=== PATIENT | female | born 1940 | race Caucasian/White ===

== ENCOUNTER 2024-03-29 06:30 | Day surgery (SDC) | payer MEDICARE, OTHER ==
--- NOTE | 2024-03-23 09:03 | HP ---
HISTORY OF PRESENT ILLNESS: The patient is an 83-year-old female who presents with a positive occult stool. She sees no blood in the stool. She has never had a colonoscopy to date. She has no other complaints. PAST MEDICAL HISTORY: Hypertension, hyperlipidemia, diabetes, atrial fibrillation, TIA, arthritis. MEDICATIONS: Atorvastatin, isosorbide mononitrate, Januvia, amiodarone, hydrochlorothiazide, lisinopril, metformin, Eliquis, metoprolol. PAST SURGICAL HISTORY: Kidney stone, breast biopsy. FAMILY HISTORY: Diabetes, gastric cancer, heart disease, leukemia. SOCIAL HISTORY: Negative. ALLERGIES: Negative. REVIEW OF SYSTEMS: CONSTITUTIONAL: Denies fever or chills. CHEST: Denies shortness of breath. CARDIOVASCULAR: Denies chest pain. ABDOMEN: Denies abdominal pain. PHYSICAL EXAMINATION: GENERAL: No acute distress. CARDIOVASCULAR: Regular rate and rhythm. RESPIRATORY: Nonlabored. No shortness of breath. ABDOMEN: Soft. ASSESSMENT: Positive occult stool. PLAN: EGD and colonoscopy with Dr. Kulwant Quintanilla. This report was dictated for Dr. Quintanilla by Carmela Webster NP.
[2024-03-29 07:12] LABS: Absolute Neutrophil Ct (ANC) 4.09 x10^3/uL (1.56-6.13); BASOPHIL % 0.4 % (0.1-1.2); Basophil (Absolute #) 0.03 x10^3/uL (0.01-0.08); Eosinophil % 1.8 % (0.7-5.8); Eosinophil (Absolute #) 0.12 x10^3/uL (0.04-0.36); Hematocrit 29.2 % (34.1-44.9); Hemoglobin 9.1 g/dL (11.2-15.7); IMMATURE GRAN # 0.01 x10^3u/L (0.001-0.031); IMMATURE GRAN % 0.1 % (0.001-0.429); Lymphocyte (Absolute #) 1.78 x10^3/uL (1.18-3.74); Lymphocytes % 26.7 % (19.3-51.7); Mean Cell Volume 64.6 fL (79.4-94.8); Mean Corpuscular Hemoglobin 20.1 pg (25.6-32.2); Mean Corpuscular Hgb Concent. 31.2 g/dL (32.2-35.5); Mean Platelet Volume 9.9 fL (9.4-12.3); Monocyte (Absolute #) 0.64 x10^3/uL (0.24-0.86); Monocytes % 9.6 % (4.7-12.5); Neutrophil % 61.4 % (34.0-71.1); Platelet Count 273 x10^3/uL (182-369); Red Blood Count 4.52 x10^6/uL (3.93-5.22); Red Cell Distribution Width 17.1 % (11.7-14.4); White Blood Count 6.7 x10^3/uL (3.98-10.04)
[2024-03-29 07:15] VITALS: RESP 16
[2024-03-29 07:34] LABS: Calcium 9.9 mg/dL (8.4-10.2); Creatinine 1 1.61 mg/dL (0.52-1.04); Potassium 4.3 mmol/L (3.5-5.1)
[2024-03-29] MEDS ORDERED: propofoL IV ONE ×2 (08:51→09:08)
[2024-03-29 09:46] VITALS: TEMP 97.4
[2024-03-29 09:55] VITALS: BP 143/72; PULSE 66; O2SAT 99
--- NOTE | 2024-03-30 13:11 | OP ---
SURGERY DATE/TIME: 03/29/2024 [id number] PREOPERATIVE DIAGNOSIS: Hemoccult positive stool. POSTOPERATIVE DIAGNOSIS: Gastritis. PROCEDURE: 1) Esophagogastroduodenoscopy with cold biopsy. 2) Colonoscopic examination to cecum. SURGEON: Kulwant Quintanilla M.D. REFERRED BY: Dr. Johnson, Family Practitioner. DESCRIPTION OF PROCEDURE: Patient taken to endoscopy. Left lateral decubitus position. MAC general was given. Scope was introduced. Pharyngoesophageal junction normal. Esophagus normal down to the EG junction. There was a rim of esophagitis, grade 2. There was a 4-inch hiatal hernia. Pylorus normal. Duodenal bulb normal. Second portion normal. Scope brought back, looped upon itself, 4-inch hiatal hernia. Distal antrum satisfactory. Body, stomach, no retained fluid, no retained contents. Scope was withdrawn. Anal digital examination satisfactory. Scope advanced to the cecum. Appendiceal orifice was normal. Base of the cecum normal. Ascending, hepatic, transverse, splenic, descending, sigmoid, rectum, anus. There was moderate internal and external hemorrhoids and there was moderate pancolonic diverticulosis. No mucosal lesions were noted. However, the patient is 83. I am not absolutely requesting any followup as 5 years would put her at 88. I think she should be followed if symptoms only.
== END 2024-03-29 10:10 | disposition home or self-care (01) ==
LOC: SDC 06:30
PROVIDERS: ATTEND Surgery
DX: K29.70 Gastritis, unspecified, without bleeding (principal); R19.5 Other fecal abnormalities; E11.9 Type 2 diabetes mellitus without complications; K44.9 Diaphragmatic hernia without obstruction or gangrene
CPT/HCPCS: 36415; 80048; 82947; 83880; 85025; 99100; J2704